=== PATIENT | female | born 1980 | race Caucasian/White ===

== ENCOUNTER 2016-05-03 07:29 | Day surgery (SDC) | payer OTHER ==
[~2016-05-03 07:29] MED LIST: Buffered Lidocaine 1% SYR 3ML* 3 ML/SYR SYRINGE INTRADERM ONE
[2016-05-03] MEDS ORDERED: fentaNYL* 50 MCG/ML 2 ML VIAL (100 MCG VIAL) ONE ×3 (07:59→10:19)
[2016-05-03] MEDS ORDERED: Midazolam* 1 MG/ML 2 ML VIAL (2 MG) ONE (07:59)
[2016-05-03] MEDS ORDERED: Propofol* 10 MG/ML 20 ML BTL IV PUSH ONE (07:59)
[2016-05-03] MEDS ORDERED: Lidocaine 2% PF * 5 ML VIAL ONE (07:59)
[2016-05-03] MEDS ORDERED: Famotidine IV* 10 MG/ML 2 ML (20 mg) ONE (07:59)
[2016-05-03 08:11] LABS: Hematocrit 42 % (35-47); Hemoglobin 14.2 g/dl (12.0-16.0); Mean Corpuscular HGB Conc 34 g/dl (31-36); Mean Corpuscular Hemoglobin 31 pg (27-31); Mean Corpuscular Volume 90 fL (80-97); Mean Platelet Volume 8 um3 (7.4-10.4); Red Blood Count 4.64 10^6/ul (4.0-5.4); Red Cell Distribution Width 13 % (10.5-15); White Blood Count 6.1 10^3/ul (3.5-10.8)
[2016-05-03 08:13] LABS: Manual Entry Verification HAN0055; UR Preg Internal Control QC Line Present
[2016-05-03] MEDS ORDERED: Scopolamine 1.5 mg* PATCH ONE (08:25)
[2016-05-03] MEDS ORDERED: Bupivacaine 0.25% SDV* 30 ML ONE (08:32)
[2016-05-03] MEDS ORDERED: Rocuronium* 10 MG/ML VIAL ONE (08:53)
[2016-05-03] MEDS ORDERED: PROCHLORPERAZINE INJ 5 MG/ML 2 ML VIAL IV PRN (09:21)
[2016-05-03] MEDS ORDERED: DiMENhydriNATE IV* 50 MG/ML VIAL IV PUSH PRN (09:21)
[2016-05-03] MEDS ORDERED: oxyCODONE TAB* 5 MG TAB PO PRN (09:21)
[2016-05-03] MEDS ORDERED: oxyCODONE TAB* 5 MG TAB ONE (10:19)
[2016-05-03] MEDS: fentaNYL* 50 MCG/ML 2 ML VIAL (100 MCG VIAL) IV PRN ×3 (10:21→10:59)
[2016-05-03] MEDS ORDERED: DiMENhydriNATE IV* 50 MG/ML VIAL ONE (10:53)
[2016-05-03 11:10] VITALS: BP 105/72
--- NOTE | 2016-05-04 01:07 | OP ---
OPERATIVE REPORT: DATE OF OPERATION: 05/03/16 DATE OF : 84 SURGEON: Osmar Kowalski MD ANESTHESIOLOGIST: Dr. Rojas. ANESTHESIA: General endotracheal. PRE-OP DIAGNOSIS: Satisfied parity. POST-OP DIAGNOSIS: Satisfied parity. OPERATIVE PROCEDURE: Laparoscopic bilateral tubal ligation using bipolar cautery. INDICATIONS: This patient is a 36-year-old 2, para 2, who desired to have permanent sterilization and was absolutely sure she did not desire any further childbearing. She was extensively counseled regarding her options and she desired to proceed with tubal ligation using bipolar energy. She was extensively counseled and consent was signed. ESTIMATED BLOOD LOSS: Minimal. URINE OUTPUT: 500 cc. IV FLUIDS: 1000 cc of lactated Ringer's. MATERIALS TO LAB: None. FINDINGS: Normal-appearing pelvis. Fallopian tubes were clearly visible and there was good cauterization on both fallopian tubes after the procedure was complete. COMPLICATIONS: None. DESCRIPTION OF PROCEDURE: The risks, benefits, and alternatives were described to the patient and informed consent was obtained. The patient was taken to the operating room with IV running where general anesthesia was induced and found to be adequate. She was prepped and draped in the normal sterile fashion in the low lithotomy position in [facility]. A time-out was performed. A Mora catheter was placed. A bivalved speculum was placed in the vagina and a Hulka tenaculum was placed on the cervix for uterine manipulation. The speculum was then removed and gloves were changed. Attention was then turned to the abdomen. 0.25% Marcaine was then injected into the umbilicus. A 5-mm vertical incision was made in the umbilicus using the scalpel. While elevating the abdominal skin, a 5-mm bladeless trocar was inserted into the incision with the laparoscope in place and this was placed without difficulty into the peritoneal cavity. Opening pressure was 3 mmHg. The abdomen was then insufflated with carbon dioxide gas to a maximum pressure of 15 mmHg. The patient was then placed in the Trendelenburg position. 0.25% Marcaine was then injected suprapubically and a 5-mm incision was made in a horizontal fashion in the midline. A second bladeless 5-mm trocar was then inserted and placed under direct visualization into the peritoneal cavity again without difficulty. A grasper was used to sweep the bowel out of the pelvis. On careful inspection, there were no visible abnormalities in the pelvis with normal ovaries, fallopian tubes and uterus. A Kleppinger was then used to grasp the patient's right fallopian tube about 2 cm from the cornua. About 4 cm of fallopian tube was then thoroughly cauterized using the Kleppinger, which was connected to an ohmmeter. Bipolar energy was applied until resistance was absent at each site. The same was then performed on the patient's left fallopian tube, again with good blanching and loss of resistance over at least 4 cm segment of tube. Care was taken to elevate the tube away from any surrounding structures. There was no bleeding present at that time. The procedure was then completed. The patient was returned to a flat position and gas was allowed to escape completely. The trocars were removed. 4-0 Monocryl was used to reapproximate both the skin incisions using a subcuticular stitch. DermaFlex skin adhesive was then applied to both incisions. The Mora catheter and the Hulka tenaculum were then removed and the patient was returned to the supine position. The patient tolerated the procedure well. Sponge, lap, and needle counts were correct x2. [id number]/[facility] #: [id number] MTDD
== END 2016-05-03 12:23 | disposition home or self-care (01) ==
LOC: OR 07:29
PROVIDERS: ATTEND Obstetrics & Gynecology
DX: Z30.2 Encounter for sterilization (principal)
CPT/HCPCS: 36415; 81025; 85027; 86850; 86870; 86880; 86900; 86901; A9270-GY; J1240; J2250; J2704; J3010

== ENCOUNTER 2018-03-27 13:02 | Day surgery (SDC) | payer OTHER ==
[~2018-03-27 13:02] MED LIST changes: -Buffered Lidocaine 1% SYR 3ML* 3 ML/SYR SYRINGE INTRADERM ONE; +Buffered Lidocaine 1% SYRIN* 1 ML/SYRINGE INTRADERM ONE; +Dexamethasone IV* 4 MG/ML 1 ML (4 MG) IV SLOW PU ONE; +Dexamethasone IV* 4 MG/ML 1 ML (4 MG) ONE; +Famotidine IV* 10 MG/ML 2 ML (20 mg) IV ONE; +Famotidine IV* 10 MG/ML 2 ML (20 mg) ONE; +Lactated Ringers 1000 ML Bag* 1,000 ML IV SCH; +ceFAZolin 2 GM PREMIX in ORs 2 GM/50 ML BAG IVPB ONE
[2018-03-27] MEDS ORDERED: Atracurium* 10 MG/ML 10 ML VIAL ONE (13:50)
[2018-03-27] MEDS ORDERED: Midazolam* 1 MG/ML 5 ML VIAL (5 MG) ONE (13:50)
[2018-03-27] MEDS ORDERED: fentaNYL* 50 MCG/ML 2 ML VIAL (100 MCG VIAL) ONE ×2 (13:50→15:13)
[2018-03-27] MEDS ORDERED: Propofol* 10 MG/ML 20 ML BTL ONE (13:54)
[2018-03-27] MEDS ORDERED: Ondansetron INJ* 2 MG/ML VIAL ONE ×2 (13:54→17:09)
[2018-03-27] MEDS ORDERED: Lidocaine 2% PF * 5 ML VIAL ONE (13:54)
[2018-03-27] MEDS ORDERED: ROPIVACAINE 5 MG/ML 30 ML BTL (0.5%) ONE (14:14)
[2018-03-27] MEDS ORDERED: Scopolamine 1.5 mg* PATCH ONE (14:23)
[2018-03-27] MEDS ORDERED: Bupivacaine 0.5%* 50 ML VIAL ONE (14:43)
[2018-03-27] MEDS ORDERED: EPINEPHRINE 1 MG/ML 1 ML VIAL ONE (14:43)
[2018-03-27] MEDS ORDERED: Scopolamine 1.5 mg* PATCH TRANSDERM SCH (15:00)
[2018-03-27] MEDS ORDERED: HYDROmorphone INJ1* 1 MG/ML SYRINGE IV PRN (15:42)
[2018-03-27] MEDS ORDERED: fentaNYL* 50 MCG/ML 2 ML VIAL (100 MCG VIAL) IV PRN (15:42)
[2018-03-27] MEDS ORDERED: Ondansetron INJ* 2 MG/ML VIAL IV PRN (15:42)
[2018-03-27] MEDS ORDERED: oxyCODONE TAB* 5 MG TAB PO PRN (15:42)
[2018-03-27] MEDS ORDERED: DiMENhydriNATE IV* 50 MG/ML VIAL IV PUSH PRN (15:42)
[2018-03-27] MEDS ORDERED: Naloxone* 0.4 MG/ML 1 ML VIAL IV PRN (15:42)
[2018-03-27] MEDS ORDERED: DiMENhydriNATE IV* 50 MG/ML VIAL ONE (16:47)
[2018-03-27 18:48] VITALS: BP 116/72
--- NOTE | 2018-03-29 22:15 | OP ---
DATE OF OPERATION: 03/27/18 - [facility] DATE OF : 84 SURGEON: Doc Obrien MD [employer] DE[employer] SUPERVISOR: ISABELA Rosen ANESTHESIOLOGIST: Dr. Ricki Hughes. ANESTHESIA: General anesthesia, regional interscalene block anesthesia. PRE-OP DIAGNOSIS: 1. Right shoulder calcific rotator cuff tendinitis with extremely large single calcium deposit. 2. Right shoulder AC joint osteoarthritis. 3. Right shoulder subacromial impingement. 4. Right shoulder possible biceps tendinosis. 5. Right shoulder possible rotator cuff tendon tear. POST-OP DIAGNOSIS: 1. Right shoulder calcific rotator cuff tendinitis with single large calcium deposit. 2. Right shoulder AC joint osteoarthritis. 3. Right shoulder subacromial impingement. 4. Right shoulder low-grade partial thickness bursal-sided infraspinatus tendon tear. OPERATIVE PROCEDURES: 1. Right shoulder arthroscopic removal of large calcium deposit, debridement in subacromial space as well as debridement rotator cuff. 2. Right shoulder arthroscopic subacromial decompression. 3. Right shoulder arthroscopic distal clavicle resection. 4. Right shoulder arthroscopic debridement, rotator cuff interval tissue and evaluation of biceps and superior labrum. ANTIBIOTICS: Ancef 2 g IV. IV FLUIDS: 600 cc crystalloid. [id number] TIME: 51 minutes. ARTHROSCOPIC FLUID UTILIZED: Unknown. SPECIMENS: None. IMPLANTS: None. COMPLICATIONS: None. ESTIMATED BLOOD LOSS: Minimal. 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 She has been seeing physicians including orthopedic surgeons since that time. The patient met me several months ago complaining of shoulder pain, but also some neck pain. A 90% of her pain was relieved with a right shoulder subacromial cortisone injection. She responded insufficiently to nonoperative management and opted for surgery. MRI showed a large calcium deposit, as did x-ray. Radiology measured the dimensions of this on MRI to be 1.5 cm x 0.5 cm x 1 cm. Also AC joint degenerative changes and a small lateral acromial spur. Studying the MRI, it looked like the calcification was attached to the bursal side of the infraspinatus rotator cuff tendon. I was ready for there to be some amount of tearing of that tendon after the calcification had been removed, enucleated. Discussed risks and essential complications of procedure. DESCRIPTION OF PROCEDURE: The patient signed a written consent in preoperative holding. Operative extremity was marked in the preoperative holding. The patient underwent a regional interscalene nerve block by Dr. Hughes in preoperative holding. The patient was then brought back to the operating room and placed supine on the operating room table. Sedated and intubated. Converted to a lateral decubitus position. Axillary roll. All bony prominence padded. Woods bag hardened. Longitudinal traction with 10 pounds with the appropriate amount of shoulder forward flexion and abduction. Right shoulder was prepped and draped. Surgical time-out performed. Entered the glenohumeral joint with a spinal needle. Infused 30 cc of normal saline. Made posterior glenohumeral joint portal. Diagnostic arthroscopy revealed no articular cartilage damage in the joint. No superior labrum tear or biceps tendinosis. No rotator cuff tendon tear undersurface. I established an anterior glenohumeral joint portal under good direct visualization. Used an arthroscopic shaver to debride some rotator cuff interval inflamed tissue. I used a probe to probe the superior labrum and biceps and again found no pathology in those. Removed instruments and fluids. Then I entered the subacromial space from posterior and anterior. I encountered a significant amount of subacromial bursitis. I debrided this bursitis with an arthroscopic shaver. I made a lateral and then a posterolateral portal under direct visualization. This improved my visualization of the rotator cuff. I took multiple layers of synovitis, bursitis from the superior aspect of the rotator cuff. Then I got down to the rotator cuff and I was able to easily see a bulge posteriorly where the calcification was present at the distal end of the infraspinatus tendon. I established an anterolateral portal to instrument through. The calcification, not surprisingly was not one piece. There were a lot of small calcification fragments. I got into this with an arthroscopic shaver and an arthroscopic probe. I then removed these calcifications with the arthroscopic shaver. This took some time. After the calcifications had been removed, I then studied the rotator cuff. I probed it with an arthroscopic probe and with a switching stick. I viewed it from posterior, posterolateral, lateral, and anterolateral portals. There was clearly no full-thickness tear to the infraspinatus. There also did not appear to be any high-grade partial thickness injury. I would describe this as very low-grade partial-thickness bursal sided tearing which we often see after we remove calcifications. Therefore, I decided no rotator cuff repair was necessary. I next, working through the lateral portal, removed the acromial spur from the lateral and anterior aspect of the acromion. I then moved to the AC joint. I debrided bursitic tissue with a vapor and then I removed 8-mm of the distal end of the clavicle with an arthroscopic aldne. I removed all fluid and instruments from the subacromial space. Closed skin incisions with [id number] in 12-stitches using nylon and 3.0 suture. Xeroform, 4x4s, ABDs, and foam tape. The patient placed in an UltraSling without an abduction pillow. DISPOSITION: The patient was awakened, extubated, and then brought to the PACU. The patient was given wound care instructions. The patient was placed on oxycodone as needed for pain control. We avoided prescribing Tylenol. I counseled the patient that if she were to have an allergic reaction to the oxycodone, she should take Benadryl and go to the emergency room. The patient will start physical therapy immediately. She will wean out off the sling as soon as possible and she will follow up with me in clinic in 10 to 14 days postoperative. [id number]/[facility] #: [id number] ALEXY
== END 2018-03-27 18:49 | disposition home or self-care (01) ==
LOC: OR 13:02
PROVIDERS: ATTEND Orthopaedic Surgery
DX: M75.31 Calcific tendinitis of right shoulder (principal); M19.011 Primary osteoarthritis, right shoulder; M54.2 Cervicalgia; R00.2 Palpitations; G89.18 Other acute postprocedural pain
CPT/HCPCS: A9270-GY; J0690; J1100; J1240; J2250; J2405; J2704; J2795; J3010